=== PATIENT | male | born 1960 | race Caucasian/White ===

== ENCOUNTER 2021-05-10 08:31 | Day surgery (SDC) | payer MEDICAID ==
--- NOTE | 2021-05-10 06:42 | PCM.PREANE ---
Preanesthetic Assessment - Procedure Proposed Procedure: Colonoscopy - Anesthesia/Transfusion/Family Hx Anesthesia History: Prior Anesthesia Without Reaction Family History of Anesthesia Reaction: No Transfusion History: No Prior Transfusion(s) Intubation History: Unknown - Review of Systems General: No Symptoms Pulmonary: No Symptoms Cardiovascular: No Symptoms Gastrointestinal: No Symptoms Neurological: No Symptoms Other: Reports: None - Physical Assessment NPO Status Date: 05/08/21 NPO Status Time: 22:00 Vital Signs: 146/93 HR 58 Sat 97% RR 14 97.0 Height: 1.88 m Weight: 103.5 kg ASA Class: 2 Mental Status: Alert & Oriented x3 Dentition: Reports: Normal Dentition ROM/Head Extension: Full Lungs: Clear to Auscultation, Normal Respiratory Effort Cardiovascular: Regular Rate, Regular Rhythm - Allergies Allergies/Adverse Reactions: Allergies Allergy/AdvReac Type Severity Reaction Status Date / Time No Known Allergies Allergy Verified 05/09/21 16:19 - Blood Blood Available: No Product(s) Available: None - Anesthesia Plan Beta Cari: Atenolol Med Last Dose Date: 05/10/21 Med Last Dose Time: 06:00 - Acknowledgements Anesthesia Type Planned: MAC Pt an Appropriate Candidate for the Planned Anesthesia: Yes Alternatives and Risks of Anesthesia Discussed w Pt/Guardian: Yes Pt/Guardian Understands and Agrees with Anesthesia Plan: Yes PreAnesthesia Questionnaire Cardiovascular History: Reports: High Cholesterol, Hypertension Respiratory History: Reports: None Genitourinary History: Reports: Other (See Below) Other Genitourinary History: erectile dysfunction FASHION COORDINATOR History: Reports: None Musculoskeletal History: Reports: Other (See Below) Other Musculoskeletal History: shoulder tendinitis Neurological History: Reports: Other (See Below) Other Neuro History: cervical radiculopothy due to degenerative joint disease of spine, cervical spine stenosis Psychiatric History: Reports: Other (See Below) Other Psychiatric History: claustophobia Endocrine/Metabolic History: Reports: Diabetes, Type II Hematologic History: Reports: None Immunologic History: Reports: None Oncologic (Cancer) History: Reports: None Dermatologic History: Reports: None - Past Surgical History Head Surgeries/Procedures: Reports: None HEENT Surgical History: Reports: Oral Surgery Cardiovascular Surgical History: Reports: None Respiratory Surgical History: Reports: None GI Surgical History: Reports: Hernia Repair/Other Female Surgical History: Reports: None Male Surgical History: Reports: None Endocrine Surgical History: Reports: None Neurological Surgical History: Reports: None Musculoskeletal Surgical History: Reports: None Oncologic Surgical History: Reports: None Dermatological Surgical History: Reports: None - SUBSTANCE USE Tobacco Use Status *Q: Never Tobacco User Second Hand Smoke Exposure: No Days Per Week of Alcohol Use: 1 Number of Drinks Per Day: 3 Total Drinks Per Week: 3 Recreational Drug Use History: No - HOME MEDS Home Medications: Home Meds Lisinopril/Hydrochlorothiazide [Lisinopril-Hctz 10-12.5 mg Tab] 1 tab PO DAILY 07/05/19 [History] atenoloL [Atenolol] 50 mg PO DAILY 07/05/19 [History] Fish Oil/[place]-3 Fatty Acids [Fish Oil 1,000 MG] 1 gm PO DAILY 05/09/21 [History] Glucosamine [Glucosamine Sulfate] 1,000 mg PO DAILY 05/09/21 [History] Multivitamin [Flintstones] 1 tab PO DAILY 05/09/21 [History] Tadalafil [Cialis] 20 mg PO ASDIRECTED PRN 05/09/21 [History] Vitamin B Complex [B Complex] 1 tab PO DAILY 05/09/21 [History] atorvaSTATin [Lipitor] 20 mg PO BEDTIME 05/09/21 [History] metFORMIN [Glucophage] 500 mg PO BID 05/09/21 [History] - CURRENT (IN HOUSE) MEDS Current Meds: Current Medications Lactated Ringer's (Ringers, Lactated) 1,000 mls @ 125 mls/hr IV ASDIRECTED JOHNNIE Stop: 05/10/21 23:00 Lidocaine/Sodium Bicarbonate (Lidocaine 1%/Sod Bicarbonate In Ns 8.4% 1 Ml Syringe) 0.25 ml IDERM ONETIME PRN PRN Reason: Prior to IV Start Stop: 05/10/21 18:00 Sodium Chloride (Sodium Chloride 0.9% 10 Ml Syringe) 10 ml FLUSH ASDIRECTED PRN PRN Reason: Keep Vein Open Stop: 05/10/21 18:00
[~2021-05-10 08:31] MED LIST: Lactated Ringers 1,000 ML IV SCH; Lidocaine 1%/Sod Bicarbonate in NS 8.4% 1 ML Syringe IDERM PRN; Sodium Chloride 0.9% 10 ML Syringe FLUSH PRN
[2021-05-10] MEDS ORDERED: Propofol 200 MG/20 ML SDV ONE ×3 (10:42→11:23)
[2021-05-10] MEDS ORDERED: Lidocaine 1% 4 ML ONE (11:10)
--- NOTE | 2021-05-10 11:52 | PCM48HPAN ---
Post Anesthesia Note - EVALUATION WITHIN 48HRS OF ANESTHETIC Vital Signs in Normal Range: Yes Patient Participated in Evaluation: Yes Respiratory Function Stable: Yes Airway Patent: Yes Cardiovascular Function Stable: Yes Hydration Status Stable: Yes Pain Control Satisfactory: Yes Nausea and Vomiting Control Satisfactory: Yes Mental Status Recovered: Yes Vital Signs: Last Vital Signs Temp 36.1 C 05/10/21 09:15 Pulse 58 L 05/10/21 09:15 Resp 14 05/10/21 09:15 BP 146/93 H 05/10/21 09:15 Pulse Ox 96 05/10/21 09:15
--- NOTE | 2021-05-10 11:55 | PCM.PRNOTE ---
- Free Text/Narrative Note: Date: 05/10/2021 Procedure: initial screening colonoscopy Endoscopist: Redd Rogers MD Findings: patient ate solid food yesterday. prep was fair. Subcentimeter polyps x2 , in ascending colon and one in sigmoid. Internal hemorrhoids. Minor diverticular disease. Detailed Report: The patient was taken to the endoscopy suite and placed in left lateral decubitus position. Timeout was performed and monitored anesthesia care was initiated. Visual inspection of the anus revealed no abnormality. Digital rectal exam was unremarkable except for small stool ball that was palpated and removed. The colonoscope was inserted and advanced all the way to the cecum. It was difficult to get to the cecum from the hepatic flexure due to looping of the scope, but the patient was positioned supine with abdominal pressure to the cecum was reached. The appendiceal orifice and ileocecal valve were well visualized. The scope was slowly withdrawn and mucosal surfaces carefully inspected. Prep was fair, there was a fair amount of particulate matter throughout the colon and some areas were obscured by solid stool mixed with murky fluid. A single tiny polyp was identified on the mucosal fold in the ascending colon. This was removed entirely with cold forceps. The only other polyp that was identified was a subcentimeter sessile lesion within the sigmoid colon which was removed with cold forceps. There were a few scattered diverticula in the sigmoid colon. On retroflexion in the rectum internal hemorrhoids were appreciated. Air was suctioned from the distal colon and rectum prior to withdrawal of the scope. The patient tolerated the procedure well.
[2021-05-10 13:33] VITALS: BP 130/87; PULSE 55
== END 2021-05-10 12:23 | disposition home or self-care (01) ==
LOC: JD.SDS 08:31
PROVIDERS: ATTEND Surgery
DX: Z12.11 Encounter for screening for malignant neoplasm of colon (principal); D12.2 Benign neoplasm of ascending colon; K64.8 Other hemorrhoids; K57.30 Diverticulosis of large intestine without perforation or abscess without bleeding; I10 Essential (primary) hypertension; E11.9 Type 2 diabetes mellitus without complications; N52.9 Male erectile dysfunction, unspecified; E78.00 Pure hypercholesterolemia, unspecified; Z79.899 Other long term (current) drug therapy; Z79.84 Long term (current) use of oral hypoglycemic drugs; Z98.890 Other specified postprocedural states
CPT/HCPCS: 00812; 82947; J2704; J7120